=== PATIENT | female | born 2005 | race Caucasian/White ===

== ENCOUNTER 2024-07-08 16:17 | Emergency (ER) | payer OTHER, SELFPAY ==
[2024-07-08 16:30] VITALS: BP 114/74; PULSE 109; RESP 20; TEMP 37.7; O2SAT 99
--- NOTE | 2024-07-08 17:35 | ED.NAVMDI ---
HPI - Nausea/Vomiting/Diarrhea General Chief complaint: Nausea/Vomiting/Diarrhea Stated complaint: nausea Time Seen by Provider: 07/08/24 17:15 Source: patient, RN notes reviewed and old records reviewed Mode of arrival: ambulatory Limitations: no limitations History of Present Illness HPI Narrative: 18 year old female presents to [facility] care with complaints of 2 day history of nausea and vomiting off and on throughout the day. Patient reports that she has had similar episodes over the past 3 years but they can't figure out why. Patient reports that she has some upper epigastric abdominal discomfort.denies any diarrhea. Patient reports that she threw up 1 hours prior to arrival. Patient reports that she has not eaten today. Patient reports that her last menses was May 28 MD elicited complaint: nausea and vomiting Pertinent past history: other (episodes of nausea and vomiting, epigstric discomfort) Onset (ago): day(s) (2) Description of vomiting: food contents and watery Associated nausea: Yes Location of pain: epigastric Pain scale (0-10): 2 Treatment prior to arrival: none Related Data Allergies Allergy/AdvReac Type Severity Reaction Status Date / Time No Known Drug Allergies Allergy Unknown Verified 01/19/18 15:58 Review of Systems Review of Systems: CONSTITUTIONAL: Denies fever, chills, or sweats. ENT: Denies rhinorrhea, congestion, sore throat, or otalgia. CARDIOVASCULAR: Denies chest pain, palpitations, or edema. RESPIRATORY: Denies cough or dyspnea. GASTROINTESTINAL: Reports upper epigastric abdominal pain, nausea, vomiting,no diarrhea. GENITOURINARY: Denies dysuria or hematuria. SKIN: Denies rash or itching. MUSCULOSKELETAL: Denies back pain, joint pain, or myalgia. NEUROLOGIC: Denies headache, numbness, or weakness. All systems reviewed & are unremarkable except as noted in HPI and below PMFSH Social History Social History (Updated 07/09/24 @ 22:50 by Paris Paniagua NP) Smoking status: Current every day smoker Tobacco type: e-cigarettes/vaping Substance use type: marijuana Living arrangements: with family Gender identity (if verbalized by the patient): Female Comments At time of signature, agree with nursing past medical, surgical, social and family history. There is no relevant family history pertinent to the presenting complaint Exam Narrative: GENERAL: Well-appearing, well-nourished, and in no acute distress. HEAD: Normocephalic, atraumatic. EYES: PERRLA, conjunctivae clear, and EOMI. ENT: Nares clear. Mucous membranes moist. Oropharynx without edema, erythema, or lesions. Tonsils not enlarged and without exudate. NECK: Supple. No lymphadenopathy CHEST: Speaks in full sentences. No respiratory distress. HEART: Regular rate and rhythm. ABDOMEN: Soft, flat, nondistended. No guarding, rebound tenderness, or rigid. No pulsatilla masses. Bowel sounds present in all four quadrants. No organomegaly. Negative Ibrahim?s sign. No periumbilical tenderness. No Supra public tenderness or distension. Good femoral pulses bilaterally. No hernia noted. No scars or surface trauma, no McBurney point tenderness. some epigastric tenderness voiced SKIN: Warm, dry, no rash. NEURO:? Alert and oriented x3. PSYCH: Normal mood and affect Course Course Emergency Course: Patient is aware of diagnosis, understands and agrees to treatment plan.? Anticipatory guidance given.? Patient agrees to follow-up as directed and is aware of reasons to seek care at the emergency department. Portions of this record may have been created with voice recognition software Level of Care: Express Care Visit Vital Signs Vital signs: Vital Signs Temperature 37.7 C H 07/08/24 16:30 Pulse Rate 109 H 07/08/24 16:30 Respiratory Rate 20 07/08/24 16:30 Blood Pressure 114/74 07/08/24 16:30 Pulse Oximetry 99 07/08/24 16:30 Oxygen Delivery Room Air 07/08/24 16:30 Temperature 37.7 C H 07/08/24
[2024-07-08 17:49] LABS: BEDSIDEPREGUCG Positive
== END 2024-07-08 18:10 | disposition home or self-care (01) ==
PROVIDERS: Emergency Provider Registered Nurse; PCP Nurse Practitioner Family
DX: O21.9 Vomiting of pregnancy, unspecified (principal); O99.891 Other specified diseases and conditions complicating pregnancy; Z3A.00 Weeks of gestation of pregnancy not specified; R10.13 Epigastric pain; O99.330 Smoking (tobacco) complicating pregnancy, unspecified trimester; F17.290 Nicotine dependence, other tobacco product, uncomplicated; O99.320 Drug use complicating pregnancy, unspecified trimester; F12.90 Cannabis use, unspecified, uncomplicated
CPT/HCPCS: 81025; 99203; G0463